=== PATIENT | male | born 1985 | race African-American/Black ===

== ENCOUNTER 2021-07-27 19:17 | Emergency (ER) | payer OTHER, SELFPAY ==
[2021-07-27 19:41] VITALS: PULSE 79; RESP 15; TEMP 37.1; O2SAT 98; BMI 27.5
[2021-07-27 20:05] LABS: MANUAL DIFF FLAG NO
[2021-07-27 20:15] LABS: Basophils Percent Auto 0.6 % (0-2); Eosinophils Absolute Auto 0.3 X10*3/uL (0.0-0.4); Hematocrit 39.6 % (42-52); Hemoglobin 12.9 g/dl (14.0-18.0); Lymphocytes Absolute Auto 2.4 X10*3/uL (1.2-4.9); Lymphocytes Percent Auto 48.8 % (20-40); Mean Corpuscular HGB Conc 32.6 g/dl (31.0-36.0); Mean Corpuscular Hemoglobin 28.7 pg (27.0-33.0); Mean Corpuscular Volume 88.2 fL (80-98); Monocytes Absolute Auto 0.5 X10*3/uL (0.1-1.2); Monocytes Percent Auto 10.7 % (2-11); Neutrophils Absolute Auto 1.7 X10*3/uL (2.0-8.3); Neutrophils Percent Auto 33.9 % (45-73); Platelet Count 207 X10*3/uL (160-400); Red Blood Count 4.49 X10*6/uL (4.60-5.80); Red Cell Distribution Width 12.8 % (11.0-16.0)
[2021-07-27 20:19] LABS: Appearance Urine CLEAR; Color Urine YELLOW; Glucose Urine UA NEG (NEG); Leukocyte Esterase Urine NEG (NEG); Nitrite Urine NEG (NEG); Urine Blood NEG (NEG); Urine Ketones NEG (NEG); Urine Protein NEG (NEG-TRACE)
[2021-07-27 20:21] LABS: Alanine Aminotransferase 16 U/L (0-40); Albumin Level 4.3 g/dL (3.5-5.0); Alkaline Phosphatase 93 U/L (39-117); Anion Gap 11 (12-20); Aspartate Amino Transferase 17 U/L (5-37); Bilirubin Total < 0.2 mg/dL (0.0-1.0); Blood Urea Nitrogen 12 mg/dL (9-16); Calcium 9.5 mg/dL (8.4-10.2); Carbon Dioxide 31 mmol/L (22-29); Chloride 101 mmol/L (96-108); Creatinine Clr Calc Pharmacy 99.7; Estimated Glomerular Filt Rate > 60; Glucose Random 95 mg/dL (60-115); Potassium 4.4 mmol/L (3.3-5.1); Sodium 139 mmol/L (135-145); Total Protein 7.1 g/dL (6.5-8.0)
[2021-07-27 20:29] VITALS: BP 102/60; PULSE 76; RESP 18; TEMP 36.9; O2SAT 99
[2021-07-27 20:40] LABS: Amphetamine Screen Urine Not Detected (Not Detect); Barbiturates, Urine Not Detected (Not Detect); Benzodiazepines Screen Urine Not Detected (Not Detect); Cannabinoid Screen Urine Not Detected (Not Detect); Cocaine Screen Urine Not Detected (Not Detect); Fentanyl, urine Not Detected (Not Detect); Opiate Screen Urine Not Detected (Not Detect); Phencyclidine Screen Urine Not Detected (Not Detect)
[2021-07-27 22:00] VITALS: BP 116/63; PULSE 70; RESP 18; O2SAT 100
--- NOTE | 2021-07-27 22:11 | ED_ITS ---
HPI - Abdominal Pain General Chief Complaint: Abdominal Pain Stated Complaint: UPPER RIGHT ABD PAIN Time Seen by Provider: 07/27/21 22:11 Source: patient Mode of arrival: ambulatory Limitations: no limitations History of Present Illness HPI narrative: Patient with chronic abdominal pain mostly in epigastric area for more than 1 year has not seen any chief ophthalmic technician yet has been to different hospital with workup negative no vomiting no diarrhea no nausea pain increases after food no melena Related Data Previous Rx's Medication Instructions Recorded pantoprazole 40 mg tablet,delayed 40 mg PO DAILY #30 tab 07/27/21 release (Protonix) sucralfate 1 gram tablet 1 g PO TID #90 tab 07/27/21 Allergies Allergy/AdvReac Type Severity Reaction Status Date / Time No Known Allergies Allergy Verified 07/27/21 22:20 Review of Systems Review of Systems Yes all other systems are reviewed and are negative Physical Exam Vital Signs: Vital Signs: Last Vital Signs Temp 98.4 F 07/27/21 20:29 Pulse 70 07/27/21 22:00 Resp 18 07/27/21 22:00 BP 116/63 07/27/21 22:00 Pulse Ox 100 07/27/21 22:00 Body Mass Index 27.5 Appearance: Alert. Oriented X3. No acute distress. Eyes: No pallor or icterus ENT: Pharynx normal. Oral Mucosa moist Neck: Normal inspection. Neck supple. CVS: Normal heart rate and rhythm. Pulses normal. Respiratory: No respiratory distress. Equal air entry bilateral, no wheezing/rales/rhonchi Abdomen: Soft and mild epigastric tenderness no rebound tenderness or guarding Bowel sounds are present, no mass palpable, no CVA tenderness Skin: Skin warm and dry. Normal skin color. Normal skin turgor. Extremities: No lower extremity edema. No calf tenderness Neuro: Oriented X 3. MDM - Abdominal Pain MDM Narrative Medical decision making narrative: Patient with stable labs normal lipase and LFTs clinically patient has gastritis possible ulcer advised to follow-up with gastroenterology for endoscopy will discharge patient home on Protonix Lab Data Attestation: I reviewed the patient's lab results. Result diagrams: 07/27/21 19:59 07/27/21 19:59 Labs: Lab Results 07/27/21 07/27/21 07/27/21 Range/Units 19:56 19:59 19:59 WBC 5.0 (4.8-10.8) X10*3/uL RBC 4.49 L (4.60-5.80) X10*6/uL Hgb 12.9 L (14.0-18.0) g/dl Hct 39.6 L (42-52) % MCV 88.2 (80-98) fL MCH 28.7 (27.0-33.0) pg MCHC 32.6 (31.0-36.0) g/dl RDW 12.8 (11.0-16.0) % Plt Count 207 (160-400) X10*3/uL MPV 9.0 L (9.4-12.4) fL Immature Gran % (Auto) 0.0 (0.0-0.4) % Neut % (Auto) 33.9 L (45-73) % Lymph % (Auto) 48.8 H (20-40) % [place] % (Auto) 10.7 (2-11) % Eos % (Auto) 6.0 H (0-4) % Baso % (Auto) 0.6 (0-2) % Lymph # (Auto) 2.4 (1.2-4.9) X10*3/uL [place] # (Auto) 0.5 (0.1-1.2) X10*3/uL Eos # (Auto) 0.3 (0.0-0.4) X10*3/uL Baso # (Auto) 0.0 (0.0-0.2) X10*3/uL Abs Immat Gran (auto) 0.00 (0.00-0.03) X10*3/uL Absolute Neuts (auto) 1.7 L (2.0-8.3) X10*3/uL Absolute Nucleated RBC 0.000 (0.0-0.012) X10*3/uL Nucleated RBC % (auto) 0.0 (0.0-0.2) /100WBC Sodium 139 (135-145) mmol/L Potassium 4.4 (3.3-5.1) mmol/L Chloride 101 (96-108) mmol/L Carbon Dioxide 31 H (22-29) mmol/L Anion Gap 11 L (12-20) BUN 12 (9-16) mg/dL Creatinine 1.08 (0.5-1.4) mg/dL Estim Creat Clear Calc 99.7 Estimated GFR > 60 Random Glucose 95 (60-115) mg/dL Calcium 9.5 (8.4-10.2) mg/dL Total Bilirubin < 0.2 (0.0-1.0) mg/dL AST 17 (5-37) U/L ALT 16 (0-40) U/L Alkaline Phosphatase 93 (39-117) U/L Total Protein 7.1 (6.5-8.0) g/dL Albumin 4.3 (3.5-5.0) g/dL Lipase 79 H (8-78) U/L Urine Color YELLOW Urine Appearance CLEAR Urine pH 7.0 (5.0-8.0) Ur Specific [place] 1.010 (1.005-1.025) Urine Protein NEG (NEG-TRACE) MG/DL Urine Glucose (UA) NEG (NEG) MG/DL Urine Ketones NEG (NEG) MG/DL Urine Blood NEG (NEG) Urine Nitrite NEG (NEG) Ur Leukocyte Esterase NEG (NEG) Urine Opiates Screen (Not Detect) Urine Fentanyl Screen (Not Detect) Ur Barbiturates Screen (Not Detect) Ur Phencyclidine Scrn (Not Detect) Ur Amphetamines Screen (Not Detect) U Benzodiazepines Scrn (Not Detect) Urine Cocaine Screen (Not Detect) U Marijuana (THC) Screen (Not Detect) 07/27/21 Range/Units 20:22 WBC (4.8-10.8) X10*3/uL RBC (4.60-5.80) X10*6/uL Hgb (14.0-18.0) g/dl Hct (42-52) % MCV (80-98) fL MCH (27.0-33.0) pg MCHC (31.0-36.0) g/dl RDW (11.0-16.0) % Plt Count (160-400) X10*3/uL MPV (9.4-12.4) fL Immature Gran % (Auto) (0.0-0.4) % Neut % (Auto) (45-73) % Lymph % (Auto) (20-40) % [place] % (Auto) (2-11) % Eos % (Auto) (0-4) % Baso % (Auto) (0-2) % Lymph # (Auto) (1.2-4.9) X10*3/uL [place] # (Auto) (0.1-1.2) X10*3/uL Eos # (Auto) (0.0-0.4) X10*3/uL Baso # (Auto) (0.0-0.2) X10*3/uL Abs Immat Gran (auto) (0.00-0.03) X10*3/uL Absolute Neuts (auto) (2.0-8.3) X10*3/uL Absolute Nucleated RBC (0.0-0.012) X10*3/uL Nucleated RBC % (auto) (0.0-0.2) /100WBC Sodium (135-145) mmol/L Potassium (3.3-5.1) mmol/L Chloride (96-108) mmol/L Carbon Dioxide (22-29) mmol/L Anion Gap (12-20) BUN (9-16) mg/dL Creatinine (0.5-1.4) mg/dL Estim Creat Clear Calc Estimated GFR Random Glucose (60-115) mg/dL Calcium (8.4-10.2) mg/dL Total Bilirubin (0.0-1.0) mg/dL AST (5-37) U/L ALT (0-40) U/L Alkaline Phosphatase (39-117) U/L Total Protein (6.5-8.0) g/dL Albumin (3.5-5.0) g/dL Lipase (8-78) U/L Urine Color Urine Appearance Urine pH (5.0-8.0) Ur Specific [place] (1.005-1.025) Urine Protein (NEG-TRACE) MG/DL Urine Glucose (UA) (NEG) MG/DL Urine Ketones (NEG) MG/DL Urine Blood (NEG) Urine Nitrite (NEG) Ur Leukocyte Esterase (NEG) Urine Opiates Screen Not Detected (Not Detect) Urine Fentanyl Screen Not Detected (Not Detect) Ur Barbiturates Screen Not Detected (Not Detect) Ur Phencyclidine Scrn Not Detected (Not Detect) Ur Amphetamines Screen Not Detected (Not Detect) U Benzodiazepines Scrn Not Detected (Not Detect) Urine Cocaine Screen Not Detected (Not Detect) U Marijuana (THC) Screen Not Detected (Not Detect) Discharge Plan Discharge Clinical Impression: Chronic gastritis Patient Disposition: Home, Self-Care Instructions: Gastritis (ED) Additional Instructions: Avoid alcohol Avoid fried food/spicy food Take medication as prescribed Follow-up with chief ophthalmic technician for further evaluation including endoscopy Prescriptions: New pantoprazole [Protonix] 40 mg tablet,delayed release (DR/EC) 40 mg PO DAILY Qty: 30 RF: 0 sucralfate 1 gram tablet 1 g PO TID Qty: 90 RF: 0 Referrals: Ciarra Reed MD [Physician] - 1 week Discharge Date/Time: 07/27/21 23:10 [facility] Past Medical History Medical History No known health problems Surgical History No history of previous surgery Social History Social History Patient Tobacco Use Status: Current everyday Tobacco user Use of substances other than those prescribed or required for medical reasons: Yes Substance Use Type: Crack/Cocaine and Marijuana Substance Use Frequency: Occasionally Advance Directives: No Advance Directives Information Provided: No
[2021-07-27 22:33] LABS: Lipase 79 U/L (8-78)
[2021-07-27] MEDS: Omeprazole 40 MG CAPSULE.DR PO (22:34)
[2021-07-27] MEDS: Magnesium Hydrox/Alum Hydrox 30 ML ORAL.SUSP PO (22:34)
--- NOTE | 2021-07-27 22:43 | PC.NURSE ---
pt a&O, no sob or chest pain, pt medicated per dec. pt requesting sandwich and juice. pt able to eat with no n./v.
== END 2021-07-27 23:10 | disposition home or self-care (01) ==
PROVIDERS: Emergency Provider Internal Medicine
DX: K29.50 Unspecified chronic gastritis without bleeding (principal)
CPT/HCPCS: 36415; 80053; 80307; 81003; 83690; 85025; 99283; 99284

== ENCOUNTER 2025-08-06 17:14 | Emergency (ER) | payer OTHER, SELFPAY ==
--- NOTE | 2025-08-06 | ECG_ITS ---
Test Reason : CP Blood Pressure : */* mmHG Vent. Rate : 91 BPM Atrial Rate : 91 BPM P-R Int : 134 ms QRS Dur : 68 ms QT Int : 338 ms P-R-T Axes : 49 -3 17 degrees QTcB Int : 415 ms Normal sinus rhythm Minimal voltage criteria for LVH, may be normal variant ( R in aVL ) Borderline ECG No previous ECGs available Referred By: Generic ED Physician Electronically Signed By: Vance Calloway
--- NOTE | ~2025-08-06 | US_ITS ---
CLINICAL HISTORY: RUQ pain, concern for marissa --- Additional Notes or Special Instructions: Looking at GB, liver, CBD Ultrasound gallbladder Comparison: None Findings: There is no cholelithiasis. The sonographic Forrest's sign was negative. There is no gallbladder wall thickening or pericholecystic fluid. The common bile duct measures 2 mm. The liver measures 19.5 cm in length. There is no focal liver lesion. Liver echogenicity is unremarkable. Impression: 1. No cholelithiasis or biliary obstruction. 2. Elongation of the liver may be secondary to hepatomegaly or a normal variant. This document has been electronically signed by: Carolyn Tsang MD on 08/06/2025 19:01:01
[2025-08-06 17:30] VITALS: BP 138/83; PULSE 94; O2SAT 94
[2025-08-06 17:33] VITALS: BMI 28.5
--- NOTE | 2025-08-06 17:50 | ED_ITS ---
HPI - Chest Pain General Chief Complaint: Chest Pain Stated Complaint: chest pain/ rib pain x6 days Time Seen by Provider: 08/06/25 17:49 Source: patient and EMS Mode of arrival: EMS Limitations: no limitations History of Present Illness ED Provider: Vanessa Lawson PA-C HPI narrative: Patient is a 39 year old assigned male at with no reported medical history presenting to the emergency department today with right upper quadrant abdominal pain. Patient is here on a section 21 from [facility]. Patient states that over the last few days he has had right upper quadrant abdominal pain that is worse with deep breathing and radiates into his right shoulder. Patient denies any other complaints at this time. Related Data Home Medications ?Medication ?Instructions ?Recorded ?Confirmed acetaminophen 325 mg tablet 650 mg PO Q4H PRN Pain 08/06/25 albuterol sulfate 90 mcg/actuation 2 puff inhalation Q 4H PRN 08/06/25 08/06/25 aerosol inhaler Shortness Of Breath chlorpromazine 100 mg tablet 100 mg PO BEDTIME 5 08/06/25 chlorpromazine 50 mg tablet 50 mg PO TID PRN Agitation 08/06/25 08/06/25 diphenhydramine HCl 50 mg capsule 50 mg PO BEDTIME 08/06/25 divalproex 500 mg tablet,extended 1,000 mg PO BEDTIME 08/06/25 08/06/25 release 24 hr docusate sodium 100 mg capsule 100 mg PO BID PRN Const ipation 08/06/25 08/06/25 fluticasone propionate 50 2 spray intranasal DAILY 08/06/25 mcg/actuation nasal spray,suspension hydroxyzine pamoate 50 mg capsule 50 mg PO Q4H PRN Anx iety 08/06/25 08/06/25 ibuprofen 400 mg tablet 400 mg PO Q8H PRN body 08/0608/06/25 ache/toothache loratadine 10 mg tablet 10 mg PO DAILY 08/06/2507/22 mirtazapine 30 mg tablet 30 mg PO BEDTIME 08/06/25 oxcarbazepine 150 mg tablet 150 mg PO BID 08/06/25 pantoprazole 40 mg tablet,delayed 40 mg PO DAILY@0630 08/06/25 08/06/25 release (Protonix) sennosides 8.6 mg tablet 17.2 mg PO DAILY PRN Constip ation 08/06/25 08/06/25 valacyclovir 500 mg tablet 500 mg PO DAILY 08/06/25 Allergies Allergy/AdvReac Type Severity Reaction Status Date / Time No Known Allergies Allergy Verified 08/06/25 17:40 Review of Systems 2 Constitutional: Constitutional: Reports as per HPI Eyes: Eyes: Reports as per HPI ENT: Reports as per HPI Cardiovascular: Cardiovascular: Reports as per HPI Respiratory: Respiratory: Reports as per HPI Gastrointestinal: Gastrointestinal: Reports as per HPI Genitourinary: Genitourinary: Reports as per HPI Musculoskeletal: Musculoskeletal: Reports as per HPI Integumentary/Breasts: Skin/Breast: Reports as per HPI Neurologic: Reports as per HPI Psychiatric: Psychiatric: Reports as per HPI Endocrine: Endocrine: Reports as per HPI Hematologic/Lymphatic: Hematologic/Lymphatic: Reports as per HPI Allergic/Immunologic: Allergic/Immunologic: Reports as per HPI [facility] Past Medical History Attestation statement: The following information was validated with the patient. Source: old records reviewed and nursing notes reviewed Medical History No known health problems Surgical History No history of previous surgery Social History Social History Patient Tobacco Use Status: Current everyday Tobacco user Smoked in Last 30 Days: No Use of substances other than those prescribed or required for medical reasons: No Substance Use Type: Crack/Cocaine and Marijuana Advance Directives: No Advance Directives Information Provided: No Do you have a plan to hurt others: No Plan Physical Exam 2 Vital Signs: Vital Signs: Last Vital Signs Temp 98 F 08/06/25 18:16 Pulse 92 08/06/25 18:16 Resp 16 08/06/25 18:16 BP 136/74 08/06/25 18:16 Pulse Ox 100 08/06/25 18:16 O2 Del Method Room Air 08/06/25 18:16 BMI result Body Mass Index 28.5 Const: General: cooperative, no acute distress, alert and awake Nutritional Appearance: well nourished Orientation/consciousness: patient oriented x3 HEENT: Head: Yes normal to inspection and Yes atraumatic Ears: hearing grossly normal bilaterally and external ears normal General nose exam: Normal external nose present, no nasal discharge noted and no epistaxis Face and sinus: Yes normal facial exam, No abrasion and No laceration Mouth: Normal oral and palatal mucosa present, no drooling and no muffled voice Eyes: General: appearance normal, both eyes and all related structures P eriorbital: periorbital findings normal Eyelids: Yes eyelids normal C onjunctivae: conjunctivae normal Pupils: Equal, round and reactive pupils present EOM: EOMs intact bilaterally Neck: Neck: Yes normal visual inspection and Yes full ROM Resp: Effort & Inspection: normal respiratory effort and able to speak in complete sentences GI: Palpation (GI): Soft to palpation, not firm, Tenderness to palpation present (GI) in the RUQ, no guarding and not rigid Neuro: General: patient oriented x3, moves all extremities and CN's II-XI intact bilaterally Cranial nerves: Yes Equal, round and reactive pupils present Cognition (Neuro): normal cognition Extrem: General: Yes normal to inspection, Yes full ROM and Yes capillary refill normal Psych: Appearance: grossly normal Mental Status: mental status grossly normal Affect: normal affect Attitude: cooperative Thought process: N ormal thought process present Thought content: Normal thought content present Insight: Good insight present (Psych) Medical Decision Making Medical Decision Making MDM Narrative: Patient is a 39 year old assigned male at with no reported medical history presenting to the emergency department today with right upper quadrant abdominal pain. Patient's physical exam was as noted in the physical exam portion of this note. Patient's blood work was unremarkable. Patient's EKG was unremarkable. Patient's RUQ US showed no acute process. I explained my physical exam findings as well as all test results to the patient. I answered all questions asked by the patient. Patient was offered pain medication however, he declined. I stressed the importance of the patient taking his medication as directed (either prescribed or as the over the counter packaging recommends). I stressed the importance of the patient following up with his primary care provider. I stressed the importance of the patient returning to the emergency department immediately if his symptoms were to worsen or if he were to develop any dizziness, shortness of breath, difficulty breathing, chest pain, blurry vision, loss of vision, nausea, vomiting, abdominal pain, fever, chills, back pain, or any other complaints. Patient verbalized agreement and understanding with this treatment plan and transfer back to [facility]. Differential Diagnosis Differential Diagnoses: The differential diagnosis associated with the presentation includes Acute cholecystitis Abdominal pain Atypical chest pain Pleurisy Costochondritis Admission/Observation Consideration of admission/observation: Escalation of care including admission/observation considered Patient would have been admitted to the hospital had his work up had any findings where hospital admission was appropriate and his clinical presentation warranted hospital admission. Lab Data [facility] Lab Attestation statement: I reviewed the patient's lab results. My interpretation of these results are in the [facility] Rationale portion of this note. 08/06/25 17:49 08/06/25 17:49 Labs: Lab Results 08/06/25 08/06/25 Range/Units 17:49 19:18 WBC 5.5 (4.8-10.8) X10*3/uL RBC 4.61 (4.60-5.80) X10*6/uL Hgb 13.1 L (14.0-18.0) g/dl Hct 40.9 L (42.0-52.0) % MCV 88.7 (80.0-98.0) fL MCH 28.4 (27.0-33.0) pg MCHC 32.0 (31.0-36.0) g/dl RDW 13.7 (11.0-16.0) % Plt Count 224 (160-400) X10*3/uL MPV 8.7 L (9.4-12.4) fL Immature Gran % (Auto) 0.6 H (0.0-0.4) % Neut % (Auto) 43.6 L (45-73) % Lymph % (Auto) 37.8 (20-40) % [place] % (Auto) 12.8 H (2-11) % Eos % (Auto) 4.8 H (0-4) % Baso % (Auto) 0.4 (0-2) % Lymph # (Auto) 2.1 (1.2-4.9) X10*3/uL [place] # (Auto) 0.7 (0.1-1.2) X10*3/uL Eos # (Auto) 0.3 (0.0-0.4) X10*3/uL Baso # (Auto) 0.0 (0.0-0.2) X10*3/uL Abs Immat Gran (auto) 0.03 (0.00-0.03) X10*3/uL Absolute Neuts (auto) 2.4 (2.0-8.3) x10*3/uL Absolute Nucleated RBC 0.000 (0.0-0.012) X10*3/uL Nucleated RBC % (auto) 0.0 (0.0-0.2) /100WBC Sodium 142 (135-145) mmol/L Potassium 4.2 (3.3-5.1) mmol/L Chloride 103 (96-108) mmol/L Carbon Dioxide 31 H (22-29) mmol/L Anion Gap 12 (12-20) BUN 19 H (9-16) mg/dL Creatinine 1.40 (0.5-1.4) mg/dL Estim Creat Clear Calc 77.5 Estimated GFR 56 Random Glucose 95 (60-115) mg/dL Calcium 9.2 (8.4-10.2) mg/dL Total Bilirubin 0.1 (0.0-1.0) mg/dL AST 25 (5-37) U/L ALT 37 (0-40) U/L Alkaline Phosphatase 91 (39-117) U/L Troponin I High Sens < 2.7 < 2.7 (<3.5-35.0) ng/L NT-Pro-B Natriuret Pep 27.2 (<300) pg/mL Total Protein 7.1 (6.5-8.0) g/dL Albumin 4.5 (3.5-5.0) g/dL Independent Interpretation I performed an independent interpretation of an: EKG and Ultrasound Interpretation: My interpretation is in agreement with the radiologist's impression of this imaging study. L Reason for Exam: RUQ pain, concern for marissa CLINICAL HISTORY: RUQ pain, concern for marissa --- Additional Notes or Special Instructions: Looking at GB, liver, CBD Ultrasound gallbladder Comparison: None Findings: There is no cholelithiasis. The sonographic Forrest's sign was negative. There is no gallbladder wall thickening or pericholecystic fluid. The common bile duct measures 2 mm. The liver measures 19.5 cm in length. There is no focal liver lesion. Liver echogenicity is unremarkable. Impression: 1. No cholelithiasis or biliary obstruction. 2. Elongation of the liver may be secondary to hepatomegaly or a normal variant. This document has been electronically signed by: Carolyn Tsang MD on 08/06/2025 19:01:01 Dictated By: Carolyn Tsang MD Signed By: Electronically signed by Carolyn Tsang MD 08/06/25 190 I independently interpreted this EKG and am in agreement with the below findings: Vent. Rate: 91 BPM Atrial Rate: 91 BPM P-R Int: 134 ms QRS Dur: 68 ms QT Int: 338 ms P-R-T Axes: 49 -3 17 degrees QTcB Int: 415 ms Normal sinus rhythm Minimal voltage criteria for LVH, may be normal variant (R in aVL) No previous ECGs available DD/ [id number] Radiology Impression Discussion of test interpretation with radiology: I have reviewed the radiologist's reading. Independent Historian Clinical information obtained from an independent historian. History obtained from or confirmed by: EMS (EMS provided additional history and confirmed the history provided by the patient. ) Tests considered The following testing was considered but not selected: I considered obtaining a chest x-ray however, the patient's clinical presentation was more consistent with right upper quadrant abdominal pain and not a chest pathology. Discharge Plan Discharge Clinical Impression: Abdominal pain, Atypical chest pain Patient Disposition: [facility] Transfer Details: Back to [facility], patient on section 21. Instructions: Abdominal Pain (ED), Noncardiac Chest Pain (ED) Additional Instructions: Your work up today was reassuring there is no EMERGENT process for your symptoms. There is no evidence you are having a heart attack and your ultrasound showed a normal gallbladder. IF you are prescribed home medications and/or you are taking over the counter medications at home - it is very important you continue to do so as prescribed / directed unless told otherwise. Follow up with a primary care provider. Return to the emergency department immediately if your symptoms worsen or if you develop any numbness, tingling, dizziness, shortness of breath, difficulty breathing, chest pain, blurry vision, loss of vision, nausea, vomiting, abdominal pain, fever, chills, back pain, or any other complaints. Please see the information below about our Patient Portal. If you are not yet enrolled in the [facility] Patient Portal, you will receive an enrollment email invitation following your visit to any [facility] setting. You may also self-enroll in the Patient Portal by visiting our website: [email or web address] The following information is required to access the Patient Portal: - Your [facility] Medical Record Number - Your personal home email address (must match what is in your electronic medical record, Registration staff can assist with this) - Name - Date of Capabilities of the Patient Portal: - Message some providers - View upcoming appointments - Access your health summary, medical history, and visit history - View current conditions and allergies - View procedure and lab results - View your medications, including guidelines, side effects, and precautions - Complete pre-appointment questionnaires requested by your provider - Ready summary reports of your office visits and procedures To access the Patient Portal Mobile Megan, follow these directions: - Search [employer] in the Megan Store or [employer] Store - Download the Megan - Search for [facility] - Enter your login/password Prescriptions: No Action oxcarbazepine 150 mg Tablet 150 mg PO BID sennosides 8.6 mg Tablet 17.2 mg PO DAILY PRN (Reason: Constipation) acetaminophen 325 mg Tablet 650 mg PO Q4H PRN (Reason: Pain) diphenhydramine HCl 50 mg Capsule 50 mg PO BEDTIME chlorpromazine 100 mg Tablet 100 mg PO BEDTIME hydroxyzine pamoate 50 mg Capsule 50 mg PO Q4H PRN (Reason: Anxiety) valacyclovir 500 mg Tablet 500 mg PO DAILY mirtazapine 30 mg Tablet 30 mg PO BEDTIME divalproex 500 mg Tablet Extended Release 24 Hr 1,000 mg PO BEDTIME ibuprofen 400 mg Tablet 400 mg PO Q8H PRN (Reason: body ache/toothache) docusate sodium 100 mg Capsule 100 mg PO BID PRN (Reason: Constipation) albuterol sulfate 90 mcg/actuation Hfa Aerosol Inhaler 2 puff INHALATION Q4H PRN (Reason: Shortness Of Breath) fluticasone propionate 50 mcg/actuation spray,suspension 2 spray intranasal DAILY loratadine 10 mg Tablet 10 mg PO DAILY chlorpromazine 50 mg Tablet 50 mg PO TID PRN (Reason: Agitation) pantoprazole [Protonix] 40 mg tablet,delayed release (DR/EC) 40 mg PO DAILY@0630 Referrals: Joi Peck NP [Primary Care Provider, Family Practice] Print Language: Jamaican
[2025-08-06 17:59] LABS: Hematocrit 40.9 % (42.0-52.0); Hemoglobin 13.1 g/dl (14.0-18.0); Imm Gran Abs Auto 0.03 X10*3/uL (0.00-0.03); Imm Gran Pct Auto 0.6 % (0.0-0.4); Lymphocytes Absolute Auto 2.1 X10*3/uL (1.2-4.9); MANUAL DIFF FLAG NO; Mean Corpuscular HGB Conc 32.0 g/dl (31.0-36.0); Mean Corpuscular Hemoglobin 28.4 pg (27.0-33.0); Mean Corpuscular Volume 88.7 fL (80.0-98.0); NRBC Abs Auto 0.000 X10*3/uL (0.0-0.012); NRBC Pct Auto 0.0 /100WBC (0.0-0.2); Platelet Count 224 X10*3/uL (160-400); Red Blood Count 4.61 X10*6/uL (4.60-5.80); White Blood Count 5.5 X10*3/uL (4.8-10.8)
[2025-08-06 18:13] LABS: Alanine Aminotransferase 37 U/L (0-40); Albumin Level 4.5 g/dL (3.5-5.0); Alkaline Phosphatase 91 U/L (39-117); Anion Gap 12 (12-20); Aspartate Amino Transferase 25 U/L (5-37); Blood Urea Nitrogen 19 mg/dL (9-16); Calcium 9.2 mg/dL (8.4-10.2); Carbon Dioxide 31 mmol/L (22-29); Chloride 103 mmol/L (96-108); Creatinine Clr Calc Pharmacy 77.5; Estimated Glomerular Filt Rate 56; Potassium 4.2 mmol/L (3.3-5.1); Sodium 142 mmol/L (135-145); Total Protein 7.1 g/dL (6.5-8.0)
[2025-08-06 18:16] VITALS: BP 136/74; PULSE 92; RESP 16; TEMP 36.6; O2SAT 100
[2025-08-06 18:18] LABS: NT Pro B Type Natriuretic Pept 27.2 pg/mL (<300)
[2025-08-06 18:20] LABS: Troponin-I High Sensitivity < 2.7 ng/L (<3.5-35.0)
--- NOTE | 2025-08-06 19:46 | PHA.MEDREC ---
Pharmacy Consult ? Medication Reconciliation Pharmacy has completed the medication reconciliation. Completed with list from [facility]
--- OUTSIDE RECORDS SUMMARY | 2025-08-06 19:49 | XMS_ITS | Encounter Summary ---
Author Organization [facility] Address [address] [place] [address] Care Team Providers Care Cell Tower Climber Name Role Phone Physician, Pcp Unknown Primary Care Provider Donna vailable Encounter Details Date Type Department Care Team (Late st Contact Info) Description 08/05/2025 Lab Requisition [facility] - Main Lab [address] [place] [address] Hannah Hoyt, [address] [address] Other long term care social worker (current) drug therapy Social History Tobacco Use Types Packs/Day Years Used Date Smoking Tobacco: Never Assessed Sex and Gender Information Value Date Recorded Sex Assigned at Not on file Legal Sex Male 5:51 AM EST Gender Identity Not on file Sexual Orientation Not on file documented as of this encounter Plan of Treatment Not on file documented as of this encounter Procedures Procedure Name Priority Date/Time Associated Diagnosis Comments LIPASE Routine 08/05/2025 7:00 AM EDT Other long term care social worker (current) drug therapy COMPREHENSIVE METABOLIC PANEL Routine 08/05/2025 7:00 AM EDT Other long term care social worker (current) drug therapy documented in this encounter Results * Lipase (08/05/2025 7:00 AM EDT) Lipase 69 13 - 75 unit/L LAB CHEMISTRY METHOD 08/05/2025 10:57 AM EDT [facility]) [facility] Blood Venous blood specimen / Unknown Venipuncture / Unknown 08/05/2025 7:00 AM EDT 08/05/2025 9:47 AM EDT us Hannah Hoyt [facility] LAB BLOOD ORDERABLES Final Result [facility] LAB [address] [place] [address], * (ABNORMAL) Comprehensive metabolic panel (08/05/2025 7:00 AM EDT) Sodium 139 133 - 145 mmol/L LAB CHEMISTRY METHOD 08/05/2025 10:57 AM [facility] LAB Potassium 4.4 3.5 - 5.5 mmol/L LAB CHEMISTRY METHOD 08/05/2025 10:57 AM [facility] LAB Chloride 102 96 - 110 mmol/L LAB CHEMISTRY METHOD 08/05/2025 10:57 AM [facility] LAB CO2 33(H) 21 - 32 mmol/L LAB CHEMISTRY METHOD 08/05/2025 10:57 AM [facility] LAB Anion Gap 4 3 - 11 LAB CHEMISTRY METHOD 08/05/2025 10:57 AM [facility] LAB Glucose 118(H) 70 - 100 mg/dL LAB CHEMISTRY METHOD 08/05/2025 10:57 AM [facility] LAB BUN 16 5 - 25 mg/dL LAB CHEMISTRY METHOD 08/05/2025 10:57 AM [facility] LAB Creatinine 1.11 0.70 - 1.30 mg/dL LAB CHEMISTRY METHOD 08/05/2025 10:57 AM [facility] LAB eGFR 87 >=60 mL/min/1. 73m2 LAB CHEMISTRY METHOD 08/05/2025 10:57 AM [facility] LAB Comment:Calculation based on the Chronic Kidney Disease Epidemiology Collaboration (CKD-EPI) equation refit without adjustment for race. BUN/Creatinine Ratio 14.4 LAB CHEMISTRY METHOD 08/05/2025 10:57 AM [facility] LAB Calcium 9.4 8.5 - 10.5 mg/dL LAB CHEMISTRY METHOD 08/05/2025 10:57 AM EDT [facility] LAB AST (SGOT) 31 10 - 42 unit/L LAB CHEMISTRY METHOD 08/05/2025 10:57 AM T [facility] LAB ALT (SGPT) 42 10 - 60 unit/L LAB CHEMISTRY METHOD 08/05/2025 10:57 AM [facility] LAB Alkaline Phosphatase 113 42 - 121 unit/L LAB CHEMISTRY METHOD 08/05/2025 10:57 AM EDT [facility] LAB Total Protein 7.2 6.0 - 8.0 g/dL LAB CHEMISTRY METHOD 08/05/2025 10:57 AM [facility] LAB Albumin 3.7 3.2 - 5.0 g/dL LAB CHEMISTRY METHOD 08/05/2025 10:57 AM [facility] LAB Total Bilirubin 0.2 0.0 - 1.4 mg/dL LAB CHEMISTRY METHOD 08/05/2025 10:57 AM [facility] LAB Blood Venous blood specimen / Unknown Venipuncture / Unknown 08/05/2025 7:00 AM EDT 08/05/2025 9:47 AM EDT Hannah Hoyt SURVEILLANCE INSPECTOR LAB BLOOD ORDERABLES Final Result [facility] [address] [place] [address], documented in this encounter Visit Diagnoses Diagnosis Other long term care social worker (current) drug therapy documented in this encounter Care Teams Cell Tower Climber Relationship Specialty Start Date End Date Physician, Pcp Unknown PCP - General 07/29/25 documented as of this encounter
--- OUTSIDE RECORDS SUMMARY | 2025-08-06 19:49 | XMS_ITS | Encounter Summary ---
Author Organization [facility] Address [address] [place] [address] Care Team Providers Care Sheet Metal Lay Out Worker Name Role Phone Physician, Pcp Unknown Primary Care Provider Donna vailable Encounter Details Date Type Department Care Team (Late st Contact Info) Description 08/04/2025 Lab Requisition [facility] - Main Lab [address] [facility] [place] [address] [place] [address] Other buttermaker helper (current) drug therapy Social History Tobacco Use [...] Procedure Name Priority Date/Time Associated Diagnosis Comments VALPROIC ACID LEVEL, TOTAL Routine 08/04/2025 7:00 AM EDT [place] [facility] ([place] drug therapy documented in this encounter Results * Valproic acid level, total (08/04/2025 7:00 AM EDT) Valproic Acid, Total 76 50 - 100 mcg/mL LAB CHEMISTRY METHOD 08/04/2025 12:44 PM EDT [facility] ([facility]) [facility] LAB Blood Venous blood specimen / Unknown Venipuncture / Unknown 08/04/2025 7:00 AM EDT 08/04/2025 10:43 AM EDT us Tigre Draper LAB BLOOD ORDERABLES Final [facility]u [facility] LAB [address] [place] [address], documented in this encounter Visit Diagnoses Diagnosis Other [place] [facility] (current) drug therapy documented in this encounter Care Teams Sheet Metal Lay Out Worker Relationship Specialty Start Date End Date Physician, Pcp Unknown PCP - General 07/29/25 documented as of this encounter
--- OUTSIDE RECORDS SUMMARY | 2025-08-06 19:49 | XMS_ITS | Clinical Summary ---
Author Organization [address] Address [address] [place] [address] Phone Care Team Providers Care Refrigerator Cabinetmaker Name Role Phone Physician, Pcp Unknown Primary Care Provider Donna vailable Encounters Date Type Department Care Team Description 08/05/2025 Lab Requisition [facility] Lab [address] [place] [id number] Hannah Hoyt FNP Other adjunct faculty for medical terminology (current) drug therapy 08/05/2025 Lab Requisition [facility] Lab [address] [place] [address] Hannah Hoyt FNP 08/04/2025 Lab Requisition [facility] Lab [address] [place] [address] Tigre Draper Other adjunct faculty for medical terminology (current) drug therapy 08/04/2025 Lab Requisition [facility] Lab [address] [place] [address] Tigre Draper 07/28/2025 Lab Requisition [facility] Lab [address] [place] [address] Tigre Draper Other adjunct faculty for medical terminology (current) drug therapy 07/28/2025 Lab Requisition [facility] Lab [address] [place] [address] Tigre Draper from Last 3 Months Social History Tobacco Use Types Packs/Day Years Used Date Smoking Tobacco: Never Assessed Sex and Gender Information Value Date Recorded Sex Assigned at Not on file Legal Sex Male 5:51 AM EST Gender Identity Not on file Sexual Orientation Not on file Plan of Treatment Health Maintenance Due Date Last Done Comments DTaP,Tdap,and Td Vaccines (1 - Tdap) 2004 Hepatitis B Vaccines (1 of 3 - 19+ 3-dose series) 2004 HPV Vaccines (1 - 3-dose SCD M series) 2012 HIV Screening 09/24/2022 Hepatitis C Screening 09/24/2022 Social Influencers of Health Screening 09/24/2022 Depression Screening 10/22/2024 COVID-19 Vaccine (1 - 2023-2 5 season) 2025 Influenza Vaccine (#1) 2025 Cholesterol Screening (Lipid Panel) 07/28/2030 07/28/2025 RSV Immunization Adult Patie nts (1 - 1-dose 75+ series) 2060 HIB Vaccines Aged Out No longer eligi ble based on patient's age to complete this topic Hepatitis A Vaccines Aged Out No long er eligible based on patient's age to complete this topic IPV Vaccines Aged Out No longer eligi ble based on patient's age to complete this topic MMR Vaccines Aged Out No longer eligi ble based on patient's age to complete this topic Meningococcal ACWY Vaccine Aged Out N o longer eligible based on patient's age to complete this topic Meningococcal B Vaccine Aged Out No l onger eligible based on patient's age to complete this topic Pneumococcal Vaccine: Pediat rics (0 to 5 Years) and At-Risk Patients (6 to 49 Years) Aged Out No longer eligi ble based on patient's age to complete this topic RSV Immunization Patients Un gabriel 20 months Aged Out No longer eligible b ased on patient's age to complete this topic Varicella Vaccines Aged Out No longer eligible based on patient's age to complete this topic Procedures Procedure Name Priority Date/Time Associated Diagnosis Comments LIPASE Routine 08/05/2025 7:00 AM EDT Other halfway (current) drug therapy COMPREHENSIVE METABOLIC PANEL Routine 08/05/2025 7:00 AM EDT Other halfway (current) drug therapy VALPROIC ACID LEVEL, TOTAL Routine 08/04/2025 7:00 AM EDT Other adjunct faculty for medical terminology (current) drug therapy LIPID PANEL WITH REFLEX TO DIRECT LDL Routine 07/28/2025 7:00 AM EDT Other adjunct faculty for medical terminology (current) drug therapy HEMOGLOBIN A1C Routine 07/28/2025 7:00 AM EDT Other adjunct faculty for medical terminology (current) drug therapy GLUCOSE, RANDOM Routine 07/28/2025 7:00 AM EDT Other adjunct faculty for medical terminology (current) drug therapy from Last 3 Months Results * Lipase (08/05/2025 7:00 AM EDT) Lipase 69 13 - 75 unit/L LAB CHEMISTRY METHOD 08/05/2025 10:57 AM EDT [facility] LAB Blood Venous blood specimen / Unknown Venipuncture / Unknown 08/05/2025 7:00 AM EDT 08/05/2025 9:[address] [facility] LAB BLOOD ORDERABLES Final Result [facility] [address] [place] [address], * (ABNORMAL) Comprehensive metabolic panel (08/05/2025 7:00 AM EDT) Pathologist [facility] Sodium 139 133 - 145 mmol/L LAB CHEMISTRY METHOD 08/05/2025 10:57 AM EDT [facility] LAB Potassium 4.4 3.5 - 5.5 mmol/L LAB CHEMISTRY METHOD 08/05/2025 10:57 AM EDT [facility] LAB Chloride 102 96 - 110 mmol/L LAB CHEMISTRY METHOD 08/05/2025 10:57 AM EDT [facility] LAB CO2 33(H) 21 - 32 mmol/L LAB CHEMISTRY METHOD 08/05/2025 10:57 AM EDT [facility] LAB Anion Gap 4 3 - 11 LAB CHEMISTRY METHOD 08/05/2025 10:57 AM EDT [facility] LAB Glucose 118(H) 70 - 100 mg/dL LAB CHEMISTRY METHOD 08/05/2025 10:[address] [facility] BUN 16 5 - 25 mg/dL LAB CHEMISTRY METHOD 08/05/2025 10:[address] [facility] LAB Creatinine 1.11 0.70 - 1.30 mg/dL LAB CHEMISTRY METHOD 08/05/2025 10:[address] [facility] LAB eGFR 87 >=60 mL/min/1. 73m2 LAB CHEMISTRY METHOD 08/05/2025 10:[address] [facility] LAB Comment:Calculation based on the Chronic Kidney Disease Epidemiology Collaboration (CKD-EPI) equation refit without adjustment for race. BUN/Creatinine Ratio 14.4 LAB CHEMISTRY METHOD 08/05/2025 10:[address] [facility] LAB Calcium 9.4 8.5 - 10.5 mg/dL LAB CHEMISTRY METHOD 08/05/2025 10:[address] [facility] LAB AST (SGOT) 31 10 - 42 unit/L LAB CHEMISTRY METHOD 08/05/2025 10:[address] [facility] ALT (SGPT) 42 10 - 60 unit/L LAB CHEMISTRY METHOD 08/05/2025 10:[address] [facility] LAB Alkaline Phosphatase 113 42 - 121 unit/L LAB CHEMISTRY METHOD 08/05/2025 10:[address] [facility] LAB Total Protein 7.2 6.0 - 8.0 g/dL LAB CHEMISTRY METHOD 08/05/2025 10:[address] [facility] LAB Albumin 3.7 3.2 - 5.0 g/dL LAB CHEMISTRY METHOD 08/05/2025 10:[address] [facility] LAB Total Bilirubin 0.2 0.0 - 1.4 mg/dL LAB CHEMISTRY METHOD 08/05/2025 10:[address] [facility] LAB Blood Venous blood specimen / Unknown Venipuncture / Unknown 08/05/2025 7:00 AM EDT 08/05/2025 9:47 AM EDT Hannah AGUILARP LAB BLOOD ORDERABLES Final Result Performing Organization Address [facility]/ZIP Co de Phone Number [facility] [address] [place] [address], [place] [phone] * Valproic acid level, total (08/04/2025 7:00 AM EDT) Pathologist [facility] Valproic Acid, Total 76 50 - 100 mcg/mL LAB CHEMISTRY METHOD 08/04/2025 12:44 PM EDT [facility] LAB Blood Venous blood specimen / Unknown Venipuncture / Unknown 08/04/2025 7:00 AM EDT 08/04/2025 10:43 AM EDT Tigre Draper LAB BLOOD ORDERABLES Final Resu lt Performing Organization Address City/[facility]/ZIP Co de Phone Number [facility] [address] [place] [address], [place] [phone] * Lipid panel with reflex to direct LDL (07/28/2025 7:00 AM EDT) [facility] Cholesterol 156 0 - 200 mg/dL LAB CHEMISTRY METHOD 07/28/2025 10:30 AM EDT [facility] Triglycerides 131 0 - 150 mg/dL LAB CHEMISTRY METHOD 07/28/2025 10:30 AM EDT [facility] HDL 62 >=40 mg/dL LAB CHEMISTRY METHOD 07/28/2025 10:30 AM EDT [facility] LDL Calculated 68 0 - 100 mg/dL LAB CHEMISTRY METHOD 07/28/2025 10:30 AM EDT [facility] LAB Comment:Estimated LDL Calcul ated using equation: Total cholesterol - HDL cholesterol - (Triglycerides/5) VLDL Cholesterol Jose 26.2 mg/dL LAB CHEMISTRY METHOD 07/28/2025 10:30 AM EDT [facility] LAB Non HDL Chol. (LDL+VLDL) 94 <145 mg/dL LAB CHEMISTRY METHOD 07/28/2025 10:30 AM EDT [facility] LAB Chol/HDL Ratio 2.5 0.0 - 4.4 LAB CHEMISTRY METHOD 07/28/2025 10:30 AM EDT [facility] LAB Blood Venous blood specimen / Unknown Venipuncture / Unknown 07/28/2025 7:00 AM EDT 07/28/2025 8:36 AM EDT Tigre Draper LAB BLOOD ORDERABLES Final Resu lt Performing Organization Address [facility]/ZIP Co de Phone Number [facility] [address] [place] [address], [place] [phone] * Hemoglobin A1c (07/28/2025 7:00 AM EDT) Hemoglobin A1C 5.5 <6.5 % LAB CHEMISTRY METHOD 07/28/2025 1:38 PM EDT [facility] Mean Bld Glu Estim. 111 mg/dL LAB CHEMISTRY METHOD 07/28/2025 1:38 PM EDT [facility] Blood Venous blood specimen / Unknown Venipuncture / Unknown 07/28/2025 7:00 AM EDT 07/28/2025 8:36 AM EDT Tigre Draper LAB BLOOD ORDERABLES Final Resu lt Performing Organization Address City/[facility]/ZIP Co de Phone Number [facility] [address] [place] [address], [place] [phone] * Glucose, random (07/28/2025 7:00 AM EDT) Glucose 91 70 - 100 mg/dL LAB CHEMISTRY METHOD 07/28/2025 10:30 AM EDT [facility] LAB Blood Venous blood specimen / Unknown Venipuncture / Unknown 07/28/2025 7:00 AM EDT 07/28/2025 8:36 AM EDT us Tigre Draper LAB BLOOD ORDERABLES Final Resu lt [facility] ([facility]) [facility] [address] [place] [address], from Last 3 Months Care Teams Refrigerator Cabinetmaker Relationship Specialty Start Date End Date Physician, Pcp Unknown PCP - General 07/29/25
--- OUTSIDE RECORDS SUMMARY | 2025-08-06 19:49 | XMS_ITS | Encounter Summary ---
Author Organization [facility] Address [address] [place] [address] Care Team Providers Care Drag Down Name Role Phone Physician, Pcp Unknown Primary Care Provider Donna vailable Encounter Details Date Type Department Care Team (Late st Contact Info) Description 08/05/2025 Lab Requisition [facility] - Main Lab [address] [facility] [place] [address] Hannah Hoyt, [address] [address] Social History Tobacco Use Types Packs/Day Years Used Date Smoking Tobacco: Never Assessed Sex and Gender Information Value Date Recorded Sex Assigned at Not on file Legal Sex Male 5:51 AM EST Gender Identity Not on file Sexual Orientation Not on file documented as of this encounter Plan of Treatment Not on file documented as of this encounter Visit Diagnoses Not on filedocumented in this encounter Care Teams Drag Down Relationship Specialty Start Date End Date Physician, Pcp Unknown PCP - General 07/29/25 documented as of this encounter
--- OUTSIDE RECORDS SUMMARY | 2025-08-06 19:49 | XMS_ITS | Encounter Summary ---
Author Organization [facility] Address [address] [place] [address] Care Team Providers Care Junior Financial Analyst Name Role Phone Physician, Pcp Unknown Primary Care Provider Donna vailable Encounter Details Date Type Department Care Team (Late st Contact Info) Description 07/28/2025 Lab Requisition [facility] - Main Lab [address] [facility] [place] [address] Gina Draper-Constanza [address] [place] [address] Social History Tobacco Use Types Packs/Day Years [...] on filedocumented in this encounter Care Teams Junior Financial Analyst Relationship Specialty Start Date End Date Physician, Pcp Unknown PCP - General 07/29/25 documented as of this encounter
--- OUTSIDE RECORDS SUMMARY | 2025-08-06 19:49 | XMS_ITS | Patient Health Record ---
Author Organization [facility] Address [address] [place] [address] Care Team Providers Care Counter Manager Name Role Phone NO, PCP Primary Care Provider Blanca Salazar Unavailable [phone] Reason For Referral No Information Plan Of Treatment No Information Insurance Providers Payer Name Payer Address Payer Phone Subscriber Number Group Number Insured Name Patient Relationship to Insured Coverage Start Date Coverage End Date [place] [address] [place] [address] [id number] Ryan Moreno Self - patient is the insured 4
--- OUTSIDE RECORDS SUMMARY | 2025-08-06 19:49 | XMS_ITS | Encounter Summary ---
Author Organization [facility] Address [address] [place] [address] Care Team Providers Care Torpedo Specialist Name Role Phone Physician, Pcp Unknown Primary Care Provider Donna vailable Encounter Details Date Type Department Care Team (Late st Contact Info) Description 08/04/2025 Lab Requisition [facility] - Main Lab [address] [facility] [place] [address] Gina Draper-Constanza [address] [place] [address] Social History Tobacco Use Types Packs/Day [...] on filedocumented in this encounter Care Teams Torpedo Specialist Relationship Specialty Start Date End Date Physician, Pcp Unknown PCP - General 07/29/25 documented as of this encounter
--- OUTSIDE RECORDS SUMMARY | 2025-08-06 19:49 | XMS_ITS | Encounter Summary ---
Author Organization [facility] Address [address] [place] [address] Care Team Providers Care Cigar Head Puncher Name Role Phone Physician, Pcp Unknown Primary Care Provider Donna vailable Encounter Details Date Type Department Care Team (Late st Contact Info) Description 07/28/2025 Lab Requisition [facility] - Main Lab [address] [facility] [place] [address] Gina Draper-Constanza [address] [place] [phone] Other machine long goods helper (current) drug therapy Social History Tobacco [...] Procedure Name Priority Date/Time Associated Diagnosis Comments LIPID PANEL WITH REFLEX TO DIRECT LDL Routine 07/28/2025 7:00 AM EDT Other halfway (current) drug therapy HEMOGLOBIN A1C Routine 07/28/2025 7:00 AM EDT Other halfway (current) drug therapy GLUCOSE, RANDOM Routine 07/28/2025 7:00 AM EDT Other halfway (current) drug therapy documented in this encounter Results * Lipid panel with reflex to direct LDL (07/28/2025 7:00 AM EDT) Cholesterol 156 0 - 200 mg/dL LAB CHEMISTRY METHOD 07/28/2025 10:30 AM EDT [facility] Triglycerides 131 0 - 150 mg/dL LAB CHEMISTRY METHOD 07/28/2025 10:30 AM EDT [facility] HDL 62 >=40 mg/dL LAB CHEMISTRY METHOD 07/28/2025 10:30 AM EDT [facility] LDL Calculated 68 0 - 100 mg/dL LAB CHEMISTRY METHOD 07/28/2025 10:30 AM EDT [facility] Comment:Estimated LDL Calcul ated using equation: Total cholesterol - HDL cholesterol - (Triglycerides/5) VLDL Cholesterol Jose 26.2 mg/dL LAB CHEMISTRY METHOD 07/28/2025 10:30 AM EDT [facility] Non HDL Chol. (LDL+VLDL) 94 <145 mg/dL LAB CHEMISTRY METHOD 07/28/2025 10:30 AM EDT [facility] Chol/HDL Ratio 2.5 0.0 - 4.4 LAB CHEMISTRY METHOD 07/28/2025 10:30 AM EDT [facility] Blood Venous blood specimen / Unknown Venipuncture / Unknown 07/28/2025 7:00 AM EDT 07/28/2025 8:36 AM EDT us Tgire Draper LAB BLOOD ORDERABLES Final Resu lt [facility] [address] [place] [address], * Hemoglobin A1c (07/28/2025 7:00 AM EDT) Hemoglobin A1C 5.5 <6.5 % LAB CHEMISTRY METHOD 07/28/2025 1:38 PM EDT [facility] Mean Bld Glu Estim. 111 mg/dL LAB CHEMISTRY METHOD 07/28/2025 1:38 PM EDT [facility] Blood Venous blood specimen / Unknown Venipuncture / Unknown 07/28/2025 7:00 AM EDT 07/28/2025 8:36 AM EDT us Landeros Draper LAB BLOOD ORDERABLES Final Resu lt Performing Organization Address [facility]/ZIP Co de Phone Number [facility] [address] [place] [address], [place] [phone] * Glucose, random (07/28/2025 7:00 AM EDT) Glucose 91 70 - 100 mg/dL LAB CHEMISTRY METHOD 07/28/2025 10:30 AM EDT [facility] Blood Venous blood specimen / Unknown Venipuncture / Unknown 07/28/2025 7:00 AM EDT 07/28/2025 8:36 AM EDT GinaDonovan Baron LAB BLOOD ORDERABLES Final Resu lt Performing Organization Address [facility] Co de Phone Number [facility] [address] [place] [address], [place] [phone] documented in this encounter Visit Diagnoses Diagnosis Other machine long goods helper (current) drug therapy documented in this encounter Care Teams Cigar Head Puncher Relationship Specialty Start Date End Date Physician, Pcp Unknown PCP - General 07/29/25 documented as of this encounter
[2025-08-06 20:01] LABS: Troponin-I High Sensitivity < 2.7 ng/L (<3.5-35.0)
[2025-08-06 20:26] VITALS: BP 140/81; PULSE 88; RESP 20; TEMP 36.8; O2SAT 98
--- NOTE | 2025-08-06 21:30 | PC.NURSE ---
Report given to Brianne GARCIA (lunchroom supervisor). Questions answered. Pt d/c via ambulance.
[2025-08-06 21:35] VITALS: BP 140/81; PULSE 88; RESP 20; TEMP 36.8; O2SAT 98
== END 2025-08-06 21:38 ==
PROVIDERS: Physician Assistant Medical; Emergency Provider Emergency Medicine; PCP Family Medicine
DX: R10.11 Right upper quadrant pain (principal); R07.9 Chest pain, unspecified; F17.200 Nicotine dependence, unspecified, uncomplicated; Z71.6 Tobacco abuse counseling
CPT/HCPCS: 36415; 76705; 80053; 83880; 84484; 85025; 93005; 99284; 99285

== ENCOUNTER → 2025-08-06 17:27 | Outpatient (BNV) | payer OTHER, SELFPAY | PROVIDERS: Emergency Provider Emergency Medicine; PCP Family Medicine; Visit Provider Internal Medicine Cardiovascular Disease | DX: R07.89 Other chest pain (principal) | CPT/HCPCS: 93010 ==

== ENCOUNTER → 2025-08-06 17:58 | Outpatient (BNV) | payer OTHER, SELFPAY | PROVIDERS: PCP Family Medicine; Visit Provider Radiology Diagnostic Radiology | DX: Q44.79 Other congenital malformations of liver (principal) | CPT/HCPCS: 76705 ==